=== PATIENT | female | born 1955 | race Caucasian/White ===

== ENCOUNTER 2016-07-08 14:04 | Emergency (ER) | payer BC ==
[2016-07-08] MEDS ORDERED: FENTANYL 100 MCG/2 ML VIAL ONE (14:37)
[2016-07-08] MEDS ORDERED: HYDROcodone/APAP 5/325 MG 1 TAB TABLET PO ONE (15:40)
--- NOTE | 2016-07-08 16:12 | ER PHYSICIAN DOCUMENTATION ---
Physician Documentation [facility] Name:Evi Han Age:60 yrs Sex:Female :1955 Arrival Date:07/08/2016 Time:14:04 Bed6 Private MD: Johnny Brunner Disposition: 07/08/16 15:14 Discharged to Home/Self Care. Impression: Humeral Head Fracture. - Condition is Good. - Discharge Instructions: FRACTURE, Upper Extremity. - Prescriptions for Hydrocodone- Acetaminophen 5-325 mg Oral - take 1 tablet by ORAL route every 6 hours As needed; 30 tablet. - Medical Reconciliation form form. - Follow up: Private Physician; When: 2 - 3 days; Reason: Continuance of care. - Problem is new. - Symptoms have improved. HPI: 07/08 18:08 This 60 yrs old Female presents to ER via Private Vehicle with complaints of jm Shoulder Injury - R. 18:08 This 60 yrs old Female presents to ER via Private Vehicle with complaints of jm Shoulder Injury - R. 18:08 The patient or guardian complains of an injury, pain. right shoulder. Context: resulted jm from a fall, saddle slipped off the horse she was on and she fell off. . Onset: The symptom(s)/episode began/occurred just prior to arrival. Historical: - Allergies: No known drug Allergies; - Home Meds: 1. Lisinopril Oral 2. amlodipine oral 3. Ambien Oral 4. Lasix Oral 5. KCL - PMHx: HYPERTENSION; kidney stones; - PSHx: kidney stone surgery; - Tetanus: > 10 years. - Ebola Screening: : Patient negative for fever greater than or equal to 101.5 degrees Fahrenheit, and additional compatible Ebola Virus Disease symptoms. Patient denies exposure to infectious person. Patient denies travel to an Ebola-affected area in the 21 days before illness onset. No symptoms or risks identified at this time. . - Immunization history: Flu Vaccine >1 year. - Social history: Smoking status: Patient states was never smoker of tobacco. ROS: 18:08 Neck: Negative for injury or acute deformity. jm 18:08 Back: Negative for injury or acute deformity. 18:08 MS/extremity: Positive for injury or acute deformity, decreased range of motion, pain. 18:08 Skin: Negative for laceration(s). 18:08 All other systems are negative. Exam: 18:08 Constitutional: The patient appears alert, awake, obese. jm 18:08 Neck: C-spine: appears grossly normal, ROM/movement: is normal. 18:08 Cardiovascular: Rate: normal, Rhythm: regular. 18:08 Musculoskeletal/extremity: ROM: limited active range of motion due to pain, limited passive range of motion due to pain, in the right shoulder, Circulation is intact in all extremities. Sensation intact. 18:08 Skin: Appearance: Color: pink, injury, is not appreciated. 18:08 Neuro: Sensation: is normal, Gait: is steady. Vital Signs: 14:18 BP 146 / 82; Pulse 88; Resp 16; Pulse Ox 88% on R/A; Weight 67.13 kg (R); Height 4 ft. tg 11 in. (149.86 cm) (R); Pain 10/10; 16:10 Pulse 88; Pulse Ox 92% on R/A; Pain 6/10; tg 14:18 Body Mass Index 29.89 (67.13 kg, 149.86 cm) tg MDM: 14:09 Patient medically screened. jm 15:00 Differential diagnosis: Anterior dislocation with fracture, Anterior dislocation jm without fracture, humeral head fracture. Data reviewed: vital signs, nurses notes, radiologic studies, and as a result, I will discharge patient. Test interpretation: by ED physician or midlevel provider: plain radiologic studies. Counseling: I had a detailed discussion with the patient and/or guardian regarding: the historical points, exam findings, and any diagnostic results supporting the discharge/admit diagnosis, radiology results, the need for outpatient follow up, a orthopedic surgeon. Medication response: The patient's symptoms have improved. 07/08 14:33 Order name: Ice Packs; Complete Time: 14:33 tg 03 15:36 Order name: ORTHO: Sling; Complete Time: 15:37 tg Dispensed Medications: 14:33 Drug: fentaNYL [place] 100 mcg; Route: Intranasal; Site: both nares; tg 15:00 Follow up: Response: Pain is decreased tg 15:36 Drug: HYDROcodone-acetaminophen 5 mg-325 mg 1 tabs; Route: PO; tg 16:10 Follow up: Response: No adverse reaction; Pain is decreased tg 15:37 Drug: fentaNYL [place] 100 mcg; Route: Intranasal; Site: both nares; tg 16:10 Follow up: Response: No adverse reaction; Pain is decreased tg Signatures: Larry Esteban, RN RN tg Johnny Spaulding MD MD jm
--- NOTE | 2016-07-08 16:12 | ER NURSING DOCUMENTATION ---
Nurse's Notes [facility] Name:Evi Han Age:60 yrs Sex:Female :1955 Arrival Date:07/08/2016 Time:14:04 Bed6 Private MD: Diagnosis:Humeral Head Fracture Presentation: 07/08 14:07 Acuity: LEMUEL 3 tg 14:22 Presenting complaint: Patient states: Pt's saddle slid from her horse, and she fell, tg landing on her right shoulder. Severe pain in right shoulder/right upper arm. Transition of care: patient was not received from another setting of care. 14:22 Method Of Arrival: Private Vehicle tg Triage Assessment: 14:22 General: Appears. tg 14:24 General: Appears uncomfortable, Behavior is cooperative. Pain: Complains of pain in tg anterior aspect of right shoulder Aggravated by repositioning. Neuro: Level of Consciousness is awake, alert, Oriented to person, place, time, event. Cardiovascular: Capillary refill < 3 seconds. Respiratory: Airway is patent Respiratory effort is even, unlabored. Musculoskeletal: Range of motion limited in right shoulder. Historical: - Allergies: No known drug Allergies; - Home Meds: 1. Lisinopril Oral 2. amlodipine oral 3. Ambien Oral 4. Lasix Oral 5. KCL - PMHx: HYPERTENSION; kidney stones; - PSHx: kidney stone surgery; - Tetanus: > 10 years. - Ebola Screening: : Patient negative for fever greater than or equal to 101.5 degrees Fahrenheit, and additional compatible Ebola Virus Disease symptoms. Patient denies exposure to infectious person. Patient denies travel to an Ebola-affected area in the 21 days before illness onset. No symptoms or risks identified at this time. . - Immunization history: Flu Vaccine >1 year. - Social history: Smoking status: Patient states was never smoker of tobacco. Screenin:19 Infectious Disease Risk Unable to Obtain. Abuse screen: Denies threats or abuse. Denies tg injuries from another. Nutritional screening: No deficits noted. Assessment: 16:07 Reassessment: Patient states feeling better. Patient states symptoms have improved. tg Vital Signs: 14:18 BP 146 / 82; Pulse 88; Resp 16; Pulse Ox 88% on R/A; Weight 67.13 kg (R); Height 4 ft. tg 11 in. (149.86 cm) (R); Pain 10/10; 16:10 Pulse 88; Pulse Ox 92% on R/A; Pain 6/10; tg 14:18 Body Mass Index 29.89 (67.13 kg, 149.86 cm) tg ED Course: 14:06 Patient arrived in ED. ama 14:07 Larry Esteban RN is Primary Nurse. tg 14:08 Triage completed. tg 14:08 Johnny Spaulding MD is Attending Physician. donnie 14:19 Valuables Remains with patient. tg 14:45 Patient moved to radiology. pm1 14:58 Patient moved back from radiology. pm1 15:37 Sling applied to right arm. tg Administered Medications: 14:33 Drug: fentaNYL [place] 100 mcg; Route: Intranasal; Site: both nares; tg 15:00 Follow up: Response: Pain is decreased tg 15:36 Drug: HYDROcodone-acetaminophen 5 mg-325 mg 1 tabs; Route: PO; tg 16:10 Follow up: Response: No adverse reaction; Pain is decreased tg 15:37 Drug: fentaNYL [place] 100 mcg; Route: Intranasal; Site: both nares; tg 16:10 Follow up: Response: No adverse reaction; Pain is decreased tg Outcome: 15:14 Discharge ordered by . donnie 16:10 Discharged to home ambulatory, with family. tg 16:10 Condition: improved 16:10 Discharge Assessment: Patient awake and alert. 16:10 Discharge instructions given to patient, family, Instructed on discharge instructions, follow up and referral plans. medication usage, Prescriptions given X 1. 16:11 Patient left the ED. tg Signatures: Larry Esteban RN RN tg Johnny Spaulding MD MD jm McBride, Philisha pm1 Keith Cabrera, Reg Reg ama
--- NOTE | 2016-07-10 17:43 | RADIOLOGY REPORT ---
Three views of the right shoulder demonstrate an essentially nondisplaced fracture of the neck and greater tuberosity. The humeral head is located within the glenoid fossa. No other abnormality is identified. IMPRESSION: Nondisplaced three part fracture of the right proximal humerus. MTDD
== END 2016-07-08 16:12 | disposition home or self-care (01) ==
LOC: ER 14:04
DX: S42.254A Nondisplaced fracture of greater tuberosity of right humerus, initial encounter for closed fracture (principal); S42.294A Other nondisplaced fracture of upper end of right humerus, initial encounter for closed fracture; V80.010A Animal-rider injured by fall from or being thrown from horse in noncollision accident, initial encounter; Y92.838 Other recreation area as the place of occurrence of the external cause; Y93.52 Activity, horseback riding; I10 Essential (primary) hypertension; Z79.899 Other long term (current) drug therapy
CPT/HCPCS: 99284